=== PATIENT | female | born 2000 | race Caucasian/White ===

== ENCOUNTER 2021-12-23 11:42 | Outpatient (REF) | payer OTHER, MEDICAID, SELFPAY ==
--- NOTE | 2021-12-23 10:15 | PAPFT_PTH ---
PATIENT: Kiya Santos LOC: [facility]#:[id number] AGE/SX: 21/F ROOM: RE12/23/[address]: Jennifer Ferguson : 2000 BED: DIS: 12/23/2021 SPEC #: [id number] RECD: 12/23/21 17:25 STATUS: JAZMYN REKay #: [id number] PJ: 12/23/21 10:[address]: Jennifer Ferguson DEPT: [facility] Cytology RECD BY: Arti Sierra ENTERED: 12/23/21 17:25 SP TYPE: PAPFT RADHA DR: Sydnee Local Tissues: 1 - CX/ENDOCX FOR PAP SMEARS Procedures: PAP THIN PREP/[facility] Screening Comments: [id number] (CHLAMYDIA/GC)
[2021-12-24 13:46] LABS: Chlamydia Result Negative (Negative); GC Result Negative (Negative)
== END 2021-12-23 11:43 | disposition home or self-care (01) ==
LOC: NCHCN 11:42
PROVIDERS: Visit Provider Nurse Practitioner Family
DX: Z11.3 Encounter for screening for infections with a predominantly sexual mode of transmission (principal); Z12.4 Encounter for screening for malignant neoplasm of cervix
CPT/HCPCS: 87491; 87591; 88142

== ENCOUNTER → 2023-10-25 01:44 | Outpatient (CLI) | payer MEDICAID, SELFPAY ==
--- NOTE | 2023-10-25 09:55 | DI.RAD_ITS ---
Exam(s) XR CHEST 2V PA LATERAL EXAM: XR CHEST 2V PA LATERAL CLINICAL HISTORY: COUGH, R05.9. TECHNIQUE: 2D digital imaging was performed. COMPARISON: No exams were available for comparison FINDINGS: 2 views: Heart size is normal. The mediastinum is not widened. Lungs are clear. No infiltrates nor pleural effusions. IMPRESSION: No acute pulmonary findings. DATA REPOSITORY: RADIATION DOSE DELIVERED:
== END ==
PROVIDERS: Visit Provider Family Medicine
DX: R05.9 Cough, unspecified (principal)
CPT/HCPCS: 71046

== ENCOUNTER 2023-12-14 06:35 | Emergency (ER) | payer MEDICAID, SELFPAY ==
[2023-12-14 06:38] VITALS: BP 123/65; PULSE 85; RESP 18; TEMP 37.6; O2SAT 100
[2023-12-14] MEDS: Ondansetron 4 MG/2 ML VIAL (06:51)
--- NOTE | 2023-12-14 06:54 | ED.GENADUL_ITS ---
Discharge Plan Disposition Patient Disposition: Home Condition: Stable Discharge Details Chief Complaint: Nausea/Vomit/Diar Clinical Impression: Nausea vomiting and diarrhea ED Provider: Silvina Perez Home Meds and New Rx's Prescriptions: No Action citalopram 20 mg tablet 20 mg PO DAILY Patient Comments: TAKE ONE TABLET BY MOUTH EVERY DAY Discharge Instructions Instructions: Acute Nausea and Vomiting (ED) Additional Instructions: Start with a bland diet then advance to bland as tolerated. Follow-up with your primary care doctor and return to the Emergency Department with any worsening symptoms or any other concerns. HPI General Date/Time Provider Initiated Documentation: 12/14/23 06:49 . HPI Narrative: The patient is a 23-year-old female with a history of anxiety who comes the emergency department for nausea, vomiting and diarrhea. Reports symptoms started around 10:00 this evening. Reports she has vomited too many times to count. Denies noticing blood in her vomit or stool. Denies eating unusual food but reports that she has been around people who are sick with similar symptoms. Reports she has felt chilled with this but denies fever. Reports her abdomen just feels upset over. Denies urinary symptoms. Denies concern. Reports that she had drink some water at home and not taking anything else to help with her symptoms. Reports that finally came in today because symptoms persisted. Related Data Home Medications Medication Instructions Recorded Confirmed citalopram 20 mg tablet 20 mg PO DAILY 12/14/23 12/14/23 Allergies Allergy/AdvReac Type Severity Reaction Status Date / Time No Known Allergies Allergy Unverified 12/14/23 06:43 General Stated Complaint: Nausea/Vomit/Diar ROSA ELENA: 3 Review of Systems Narrative: Review of systems are negative except as mentioned. Exam Narrative Exam Narrative: Patient is in no acute distress. Oral mucosal membranes are dry. Heart is regular in rate and rhythm. Lungs are clear to auscultation. Abdomen is soft with normal bowel sounds. No tenderness noted to palpation throughout. No CVA tenderness is noted to palpation bilaterally. Patient has equal radial pulses. Skin is warm and dry. Course Vital Signs Vital signs: Vital Signs Temperature 37.6 C H 12/14/23 06:38 Pulse 85 12/14/23 06:38 Respiratory Rate 18 12/14/23 06:38 Blood Pressure 123/65 12/14/23 06:38 Pulse Oximetry 100 12/14/23 06:38 Temperature 37.6 C H 12/14/23 06:38 Temperature Source Temporal Artery Scan 12/14/23 06:38 Pulse 85 12/14/23 06:38 Respiratory Rate 18 12/14/23 06:38 Respiratory Effort Normal 12/14/23 06:43 Blood Pressure 123/65 12/14/23 06:38 Pulse Oximetry 100 12/14/23 06:38 Pain Level 3 12/14/23 06:38 Medical Decision Making The patient does appear clinically dehydrated. Liter of normal saline, IV Zofran has been given to her. I am checking her blood work as well. Once appropriate we will try a po challenge. At this point the patient is signed out to Dr. Mensah. Patient's discharge paperwork is filled out in anticipation for an unremarkable ED course. Quality:SDOH Health Related Social Needs: No Data to Display PFSH All Active Problems (Updated 12/14/23 @ 07:04 by Silvina Perez DO) Nausea vomiting and diarrhea (Acute) Social History Smoking/Tobacco Use Status: Never Smoking risk assessment performed?: Yes Alcohol Intake: never Do you feel safe in your relationship?: Yes
[2023-12-14 07:00] LABS: Abs Immature Grans 0.06 10^3/uL (0.0-0.06); Absolute Basophil Count 0.04 10^3/uL (0.0-0.2); Absolute Eosinophil Count 0.01 10^3/uL (0.0-0.7); Absolute Monocyte Count 0.95 10^3/uL (0.1-0.8); Basophils % 0.3; Eosinophils % 0.1; HCT 39.1 % (36.0-46.0); HGB 13.6 g/dL (11.2-15.7); Immature Grans % 0.4; Lymphocytes % 3.9; MCH 30.2 pg (27.0-33.0); MCHC 34.8 % (32.0-36.0); MCV 87 fL (80-95); MPV 10.4 fL (8.0-11.0); Monocytes % 6.7; Neutrophils % 88.6; Platelet Count 253 10^3/uL (130-400); RBC 4.51 10^6/uL (3.93-5.22); RDW 12.5 % (11.7-14.6); RDW-SD 39.9 fL; WBC 14.24 10^3/uL (4.4-10.8)
[2023-12-14 07:01] LABS: Absolute Lymphocyte Count 0.56 10^3/uL (1.2-3.4); Absolute Neutrophil Count 12.62 10^3/uL (1.2-6.7)
[2023-12-14 07:21] LABS: ALT 302 U/L (14-59); AST 161 U/L (15-37); Albumin 3.9 g/dL (3.4-5.0); Alkaline Phosphatase 77 U/L (46-116); BUN 16 mg/dL (7-18); Bilirubin, Total 1.3 mg/dL (0.2-1.0); CREATININE 1.1 mg/dL (0.55-1.02); Calcium 9.2 mg/dL (8.5-10.1); Chloride 100 mmol/L (98-107); Estimated GFR 71.96 (mL/min/1.73m2); Glucose 179 mg/dL (74-106); Magnesium 1.2 mg/dL (1.8-2.4); Potassium 3.4 mmol/L (3.5-5.1); Sodium 138 mmol/L (136-145); Total Protein 7.9 g/dL (6.4-8.2)
[2023-12-14 07:24] LABS: HCG Qual (Serum) Negative
--- NOTE | 2023-12-14 07:37 | W.EDPROG ---
Date of service: 12/14/23 Time of Service: 07:37 Medical Decision Making Patient signed out to me, pending p.o. trial after labs and Zofran. Patient states she still feels nauseous. She has some abdominal cramping, labs show mild increase in anion gap. LFTs are mildly elevated as well. She does have some right upper quadrant tenderness on exam, negative Whittaker sign. Will replete magnesium, obtain abdominal ultrasound to evaluate for gallbladder or liver pathology, though suspect elevated LFTs is due to a viral illness. patient feeling better after Compazine, will trial p.o. challenge, ultrasound negative. Will repeat BMP BMP showed improved anion gap, is tolerating p.o., no abdominal tenderness on repeat exam. Suspect viral gastroenteritis, stable for discharge advised to follow-up with primary care provider if not improving and return precautions given Imaging Data Radiologic Study: Attestation: I personally reviewed and interpreted this imaging study as follows: Imaging: Ultrasound Radiologist's impression: Exam(s) US ABDOMEN LIMITED EXAM: US ABDOMEN LIMITED CLINICAL HISTORY: elevated lft's, right upper abdominal pain TECHNIQUE: Ultrasound abdomen performed using standard protocol. COMPARISON: No exams were available for comparison FINDINGS: LIVER: Normal size. Normalechogenicity. No focal liver lesions are seen.. GALLBLADDER: No evidence of cholelithiasis. No evidence of wall thickening. No pericholecystic fluid identified. WHITTAKER'S SIGN: Negative. BILIARY SYSTEM: No intrahepatic or extrahepatic biliary ductal dilation. RIGHT KIDNEY: Normal size. No evidence of renal calculi. No evidence of hydronephrosis. No suspicious renal mass. No cyst identified. PANCREAS: Obscured by bowel gas. ABDOMINAL AORTA AND IVC: Visualized portions normal caliber. ASCITES: None seen. IMPRESSION: Normal sonographic appearance of the right upper quadrant. Quality:[facility] Health Related Social Needs: No Data to Display Discharge Plan Disposition Patient Disposition: Home Condition: Stable Discharge Details Clinical Impression: Nausea vomiting and diarrhea, Elevated LFTs Primary Care Provider: Unknown,Unknown ED Provider: Magan Mensah Home Meds and New Rx's Prescriptions: New prochlorperazine maleate [Compazine] 10 mg tablet 10 mg PO TID PRN (Reason: nausea and vomiting) Qty: 30 0RF Continued citalopram 20 mg tablet 20 mg PO DAILY Patient Comments: TAKE ONE TABLET BY MOUTH EVERY DAY Discharge Instructions Instructions: Acute Nausea and Vomiting (ED), Hypomagnesemia (ED) Additional Instructions: Start with a bland diet then advance to bland as tolerated. Follow-up with your primary care doctor and return to the Emergency Department with any worsening symptoms or any other concerns. You should also have your liver function test repeated in a few weeks with your primary care provider
[2023-12-14] MEDS: MAGNESIUM SULFATE 1 GM/100 ML BAG IVPB (07:40)
[2023-12-14] MEDS: Prochlorperazine 10 MG/2 ML VIAL IVP (07:40)
--- NOTE | 2023-12-14 08:15 | DI.US_ITS ---
Exam(s) US ABDOMEN LIMITED EXAM: US ABDOMEN LIMITED CLINICAL HISTORY: elevated lft's, right upper abdominal pain TECHNIQUE: Ultrasound abdomen performed using standard protocol. COMPARISON: No exams were available for comparison FINDINGS: LIVER: Normal size. Normalechogenicity. No focal liver lesions are seen.. GALLBLADDER: No evidence of cholelithiasis. No evidence of wall thickening. No pericholecystic fluid identified. THORNTON'S SIGN: Negative. BILIARY SYSTEM: No intrahepatic or extrahepatic biliary ductal dilation. RIGHT KIDNEY: Normal size. No evidence of renal calculi. No evidence of hydronephrosis. No suspicious renal mass. No cyst identified. PANCREAS: Obscured by bowel gas. ABDOMINAL AORTA AND IVC: Visualized portions normal caliber. ASCITES: None seen. IMPRESSION: Normal sonographic appearance of the right upper quadrant. DATA REPOSITORY:
[2023-12-14] MEDS: Lactated Ringers 1,000 ML 1000 ML IV (08:50)
[2023-12-14 09:44] LABS: Anion Gap 12.9 mmol/L (3-11); BUN 12 mg/dL (7-18); CO2 24.1 mmol/L (21.0-32.0); CREATININE 0.9 mg/dL (0.55-1.02); Calcium 8.1 mg/dL (8.5-10.1); Chloride 104 mmol/L (98-107); Estimated GFR 91.55 (mL/min/1.73m2); Glucose 121 mg/dL (74-106); Potassium 3.4 mmol/L (3.5-5.1); Sodium 141 mmol/L (136-145)
[2023-12-14 18:38] LABS: Hepatitis A Antibody IgM Negative (Negative); Hepatitis B Core Antibody Negative (Negative); Hepatitis B surface Ag Negative (Negative); Hepatitis C Ab w Rflx HCV PCR Negative (Negative)
== END 2023-12-14 10:04 | disposition home or self-care (01) ==
LOC: ER 08:36
PROVIDERS: Emergency Medicine; Emergency Provider Emergency Medicine
DX: R10.11 Right upper quadrant pain (principal); R11.2 Nausea with vomiting, unspecified; R19.7 Diarrhea, unspecified; R94.5 Abnormal results of liver function studies; F41.9 Anxiety disorder, unspecified
CPT/HCPCS: 123; 36415; 80048; 80053; 86704; 86709; 86803; 87340; 96365; 96375; 99284; 00123; 76705; 83735; 84703; 85025; J0780; J2405; J3475

== ENCOUNTER 2024-09-05 13:27 | Outpatient (REF) | payer SELFPAY ==
--- NOTE | 2024-09-05 08:00 | PAPFT_PTH ---
PATIENT: Kiya Santos LOC: [facility]#:[id number] AGE/SX: 24/F ROOM: RE09/05/[address]: Jennifer Ferguson : 2000 BED: DIS: 09/05/2024 SPEC #: [id number] RECD: 09/05/24 17:46 STATUS: JAZMYN REQ #: [id number] PJ: 09/05/24 08:[address]: Jennifer Ferguson DEPT: [facility] Cytology RECD BY: Arti Sierra ENTERED: 09/05/24 17:46 SP TYPE: PAPFT OTHR DR: None Tissues: 1 - CX/ENDOCX FOR PAP SMEARS Procedures: PAP THIN PREP/[facility] Screening Comments: (CHLAMYDIA/GC)
[2024-09-10 12:36] LABS: Chlamydia Result Negative (Negative); GC Result Negative (Negative)
== END 2024-09-05 13:28 | disposition home or self-care (01) ==
LOC: NCHCN 13:27
PROVIDERS: Visit Provider Nurse Practitioner Family
DX: Z12.4 Encounter for screening for malignant neoplasm of cervix (principal); Z11.3 Encounter for screening for infections with a predominantly sexual mode of transmission
CPT/HCPCS: 87491; 87591; 88142

== ENCOUNTER 2025-08-14 16:30 | Outpatient (REF) | payer OTHER, SELFPAY ==
[2025-08-14 21:04] LABS: ALT 37 U/L (14-59); AST 25 U/L (15-37); Albumin 3.6 g/dL (3.4-5.0); Alkaline Phosphatase 81 U/L (46-116); Anion Gap 9.9 mmol/L (3-11); BUN 9 mg/dL (7-18); Bilirubin, Total 0.3 mg/dL (0.2-1.0); CO2 28.1 mmol/L (21.0-32.0); Calcium 9.0 mg/dL (8.5-10.1); Chloride 103 mmol/L (98-107); Cholesterol 208 mg/dL (<200); Glucose 100 mg/dL (74-106); HDL Cholesterol 40 mg/dL (>or=50); Potassium 4.1 mmol/L (3.5-5.1); Sodium 141 mmol/L (136-145); Total Protein 7.3 g/dL (6.4-8.2)
[2025-08-14 21:19] LABS: Hemoglobin A1C 5.6 % (<5.7)
== END 2025-08-14 16:31 | disposition home or self-care (01) ==
LOC: NCHCN 16:30
PROVIDERS: Visit Provider Nurse Practitioner Family
DX: R03.0 Elevated blood-pressure reading, without diagnosis of hypertension (principal); E66.9 Obesity, unspecified
CPT/HCPCS: 80053; 80061; 83036